=== PATIENT | female | born 1985 | race Caucasian/White ===

== ENCOUNTER 2018-03-09 00:26 | Emergency (ER) | payer BC ==
[2018-03-09] MEDS ORDERED: AMOXicillin 250 MG CAP ONE (01:01)
== END 2018-03-09 01:05 | disposition home or self-care (01) ==
LOC: SCSER 00:26
DX: O99.89 Other specified diseases and conditions complicating pregnancy, childbirth and the puerperium (principal); H65.92 Unspecified nonsuppurative otitis media, left ear; O99.511 Diseases of the respiratory system complicating pregnancy, first trimester; J02.9 Acute pharyngitis, unspecified; Z3A.01 Less than 8 weeks gestation of pregnancy
CPT/HCPCS: 87081; 87430; 99283